=== PATIENT | female | born 1970 | race Caucasian/White ===

== ENCOUNTER 2016-11-30 22:32 | Emergency (ER) | payer SELFPAY ==
[~2016-11-30] VITALS: Ht 177.8 cm; Wt 180.0 kg
[2016-11-30 22:39] VITALS: BP 185/87; PULSE 83; RESP 20; TEMP 98.4; O2SAT 97
--- NOTE | 2016-12-01 00:20 | PD ---
HPI Chief Complaint: Fall Time Seen by Provider: 00:17 Travel History International Travel<30 days: No Contact w/Intl Traveler<30days: No Traveled to known affect area: No History of Present Illness HPI 46-year-old female presents to the emergency department for left shoulder pain after a non-syncopal slip and fall 10:30 PM this evening. Patient denies other injury. Patient states she did not hit her head or have loss of consciousness. Patient denies head pain neck pain back pain or abdominal pain. Patient denies any left upper extremity numbness tingling or weakness. Patient rates her pain 10 over 10 in intensity. No previous injury to the left upper extremity. PFSH Past Medical History Narrative Medical Cholecystectomy; Nursing notes reviewed Tetanus Vaccination: Unknown Influenza Vaccination: No ?: Not LMP: november 07 Past Surgical History Cholecystectomy: Yes Social History Alcohol Use: Yes (occ) Tobacco Use: No Substance Use: No Allergies-Medications (Allergen,Severity, Reaction): Coded Allergies: Penicillin (Verified Allergy, Severe, 11/30/16) Uncoded Allergies: fleas (Allergy, Intermediate, 11/30/16) Reported Meds & Prescriptions Reported Meds & Active Scripts Active Tramadol (Tramadol HCl) 50 Mg Tab 50 Mg PO Q6H PRN Review of Systems Except as stated in HPI: all other systems reviewed are Neg Physical Exam Narrative GENERAL: Obese well-developed well-nourished female in no acute distress no respiratory distress SKIN: Warm and dry. HEAD: Normocephalic. EYES: No scleral icterus. No injection or drainage. NECK: Supple, trachea midline. No JVD or lymphadenopathy. CARDIOVASCULAR: Regular rate and rhythm without murmurs, gallops, or rubs. RESPIRATORY: Breath sounds equal bilaterally. No accessory muscle use. GASTROINTESTINAL: Abdomen soft, non-tender, nondistended. MUSCULOSKELETAL: No cyanosis, or edema. Decreased range of motion secondary to left shoulder pain without obvious deformity tenderness to palpation no ecchymosis abrasion edema or erythema distally neurovascular tendon intact with brisk capillary refill less than 2 seconds per digit radial pulse 2+ to palpation intact thumb apposition BACK: Nontender without obvious deformity. No CVA tenderness. Data Data Last Documented VS Vital Signs Date Time Temp Pulse Resp B/P Pulse Ox O2 Delivery O2 Flow Rate FiO2 12/01/16 01:23 18 11/30/16 22:39 98.4 83 185/87 97 Orders Ibuprofen (Motrin) (12/01/16 00:30) Shoulder, Complete (>2vws) (12/01/16 ) Humerus (Min 2vws) (12/01/16 ) Splint Or Brace Apply/Monitor (12/01/16 01:28) Sling Cradle Arm (12/01/16 ) MDM Medical Decision Making Medical Screen Exam Complete: Yes Emergency Medical Condition: Yes Medical Record Reviewed: Yes Interpretation(s) Last Impressions Shoulder X-Ray 12/01/16 0000 Signed Impressions: Service Date/Time: Thursday, December 01, 2016 00:34 - CONCLUSION: No acute finding is identified. Adan Kohler MD Humerus X-Ray 12/01/16 0000 Signed Impressions: Service Date/Time: Thursday, December 01, 2016 00:42 - CONCLUSION: No acute abnormality is identified. Adan Kohler MD Differential Diagnosis Contusion sprain strain fracture subluxation dislocation Narrative Course Imaging study ordered patient administered ibuprofen and ice pack Imaging studies revealed no acute bony injury; sling applied; patient stable for outpatient management Diagnosis Primary Impression: Sprain of left shoulder Referrals: Primary Care Physician call for appointment Patient Instructions: General Instructions Additional Instructions: Wear sling No use left upper extremity 2 days Take ibuprofen as needed for pain associated with inflammation Take acetaminophen as needed for minor pain Apply ice to left shoulder left upper extremity intermittently for next 12-24 hours Follow-up with your primary care provider Return to the emergency department for any concerns or change in condition Med/Other Pt SpecificInfo: Prescription(s) given Scripts Tramadol 50 Mg Tab50 Mg PO Q6H PRN (PAIN) #12 TAB Ref 0 Prov:Molly Jones MD 12/01/16 Disposition: 01 DISCHARGE HOME Condition: Stable Molly Jones MD Dec 01, 2016 00:20
[2016-12-01] MEDS ORDERED: IBUPROFEN 800 MG TAB PO ONE (00:30)
--- NOTE | 2016-12-01 01:18 | RADRPT ---
EXAM DATE/TIME: 12/01/2016 00:42 [facility] COMPARISON: No previous studies available for comparison. INDICATIONS : Trauma, fall. MEDICAL HISTORY : None. SURGICAL HISTORY : None. ENCOUNTER: Initial ACUITY: 1 day PAIN SCORE: 8/10 LOCATION: Left upper arm. FINDINGS: 2 views of the left forearm demonstrate no fracture or dislocation. Mineralization is within normal l imits. No soft tissue abnormality or radiopaque foreign body is identified. CONCLUSION: No acute abnormality is identified. Adan Kohler MD on December 01, 2016 at 1:16 Board Certified Radiologist. This report was verified electronically.
--- NOTE | 2016-12-01 01:18 | RADRPT ---
EXAM DATE/TIME: 12/01/2016 00:34 [facility] COMPARISON: HUMERUS LEFT (MIN 2VWS), December 01, 2016, 0:42. INDICATIONS : Trauma, fall. MEDICAL HISTORY : None. SURGICAL HISTORY : None. ENCOUNTER: Initial ACUITY: 1 day PAIN SCORE: 8/10 LOCATION: Left shoulder. FINDINGS: 4 views of the left shoulder demonstrate no fracture or dislocation. The acromioclavicular joint is i ntact. No soft tissue abnormality is identified. The visualized portions of the left lung are clear and no displaced rib fracture is seen. CONCLUSION: No acute finding is identified. Adan oKhler MD on December 01, 2016 at 1:15 Board Certified Radiologist. This report was verified electronically.
[2016-12-01 01:23] VITALS: RESP 18
[2016-12-01] MEDS ORDERED: TRAM50TA PO (01:29)
== END 2016-12-01 01:57 | disposition home or self-care (01) ==
LOC: PHED 22:32
DX: S43.402A Unspecified sprain of left shoulder joint, initial encounter (principal); W01.0XXA Fall on same level from slipping, tripping and stumbling without subsequent striking against object, initial encounter
CPT/HCPCS: 73030; 73060; 99284